=== PATIENT | male | born 1965 | race African-American/Black ===

== ENCOUNTER → 2022-12-15 | Day surgery (SDC) | payer OTHER ==
[~2022-12-15] MED LIST: ASPIRIN81 MG PO; BENICAR20 MG PO; CRESTOR10 MG PO; DICLOFENAC; FUROSEMIDE40 MG PO; LACTATED RINGER'S 1,000 ML ONE; LIDOCAINE HCL 2% LOCAL INJ 5 ML SDV VIAL INJ ONE; MESTINON60 MG PO; METFORMIN HCL500 MG PO; OZEMPIC1 MG/0.71; PREDNISONE10 MG PO; PROPAFENONE HC325 MG PO; PROPOFOL IV EMULSION 10 MG/ML 20 ML VIAL ONE
[2022-12-15 10:47] VITALS: TEMP 97.8
[2022-12-15 11:15] VITALS: BP 142/88; PULSE 85; RESP 16; O2SAT 98
== END | disposition home or self-care (01) ==
LOC: OR 07:55
PROVIDERS: ATTEND Internal Medicine Gastroenterology
DX: Z12.11 Encounter for screening for malignant neoplasm of colon (principal); K57.30 Diverticulosis of large intestine without perforation or abscess without bleeding; K64.8 Other hemorrhoids; G47.33 Obstructive sleep apnea (adult) (pediatric); E11.9 Type 2 diabetes mellitus without complications; G70.00 Myasthenia gravis without (acute) exacerbation; E78.5 Hyperlipidemia, unspecified; I10 Essential (primary) hypertension; I49.1 Atrial premature depolarization; E66.9 Obesity, unspecified; Z01.810 Encounter for preprocedural cardiovascular examination; Z79.82 Long term (current) use of aspirin; Z79.84 Long term (current) use of oral hypoglycemic drugs; Z79.85 Long-term (current) use of injectable non-insulin antidiabetic drugs; Z79.899 Other long term (current) drug therapy; Z68.38 Body mass index [BMI] 38.0-38.9, adult; Z87.891 Personal history of nicotine dependence
CPT/HCPCS: 36415; 45378; 82948; 93005; J2001; J2704; J7121